=== PATIENT | male | born 1935 | race Caucasian/White ===

== ENCOUNTER 2024-01-06 23:51 | Inpatient (IN) | payer OTHER, SELFPAY ==
[2024-01-06 21:18] VITALS: BP 141/68
[2024-01-06 21:19] VITALS: BP 141/68
[2024-01-06 21:24] VITALS: BMI 29.2
--- NOTE | 2024-01-06 21:55 | ED.GENMED ---
History of Present Illness
General
Chief Complaint: Weakness
Time Seen by Provider: 01/06/24 21:39
History of Present Illness
History of Present Illness:
88-year-old male presents the emergency department for evaluation of generalized weakness, fevers, chills, and mild cough. Symptoms began yesterday and worsened today. He had a positive COVID-19 test at home today. Denies chest pain or dyspnea at
this time. No leg swelling or calf cramping
Past History
Past History
ED Past Medical History: CAD, HTN, Hypercholesterolemia and Other (AAA)
ED Past Surgical History: Cardiac, Orthopedic and Other (AAA repair)
Social History
Tobacco: Non-smoker
Alcohol: None
Drug: None
Personal:
Living: with family
Employment: Retired
Review of Systems
Review of Systems
Allergies reviewed?: Yes
All Other Systems: ROS reviewed and negative except as documented in HPI and ROS
Phy Exam
Physical Exam
Physical Exam:
GEN: Ill-appearing, no immediate distress
HEENT: Oral mucosa moist, no scleral icterus
Cardiac: Regular rate and rhythm, no murmurs
Lung: No respiratory distress, no tachypnea, lungs clear to auscultation bilaterally
MSK: No gross deformity or injuries
Skin: Good color, no pallor or jaundice, no rashes
Neuro: AO x3, moves all extremities freely
Psych: Calm, cooperative
Course
Orders/Labs/Results
Orders:
Orders
01/06/24 21:45
Complete Blood Count/With Diff Urgent
Comprehensive Metabolic Panel Urgent
01/06/24 21:47
ECG [Electrocardiogram (*1)] Urgent
Reason for Study: Shortness of Breath
Cardiology Consult: Unknown
01/06/24 21:48
EKG- Treatment ONCE
01/06/24 21:49
COVID-19 Antigen Urgent
Source: Nasal Swab
Comment: .
01/06/24 22:15
CR Chest - 2 Views Urgent
Comment:
Reason For Exam: weakness/COVID
01/06/24 22:56
Acetaminophen [Tylenol] 1,000 mg PO NOW STA
Dexamethasone Sod Phosphate [Decadron] 6 mg IV NOW STA
Ondansetron Injectable [Zofran] 4 mg IV NOW STA
01/06/24 23:04
Ondansetron Injectable [Zofran] 4 mg IV NOW STA
01/06/24 23:10
Dexamethasone Sod Phosphate [Decadron] 4 mg .ROUTE .STK-MED ONE
Abnormal Lab Results
01/06/24 01/06/24
21:45 21:49
WBC 12.1 H 10^3/uL
(4.8-10.8)
RBC 4.20 L 10^6/uL
(4.70-6.10)
Hgb 12.1 L g/dL
(13.0-18.0)
Hct 35.6 L %
(39.0-52.0)
RDW 16.4 H %
(11.5-14.5)
MPV 11.1 H fL
(7.4-10.4)
Abs Immat Gran (auto) 0.1 H 10^3/uL
(0-0.05)
Absolute Neuts (auto) 10.7 H 10^3/uL
(1.4-6.5)
Absolute Lymphs (auto) 0.4 L 10^3/uL
(1.2-3.4)
Absolute Monos (auto) 0.8 H 10^3/uL
(0.1-0.6)
Immature Gran % 1.0 H %
(0-0.5)
Neutrophils % 88.1 H %
(42.2-75.2)
Lymphocytes % 3.0 L %
(20.5-51.1)
BUN 29 H mg/dl
(9-20)
Glucose 160 H mg/dl
(70-99)
SARS-CoV-2 Antigen Positive A
(Negative)
01/06/24 21:45
01/06/24 21:45
Vital Signs
Initial and Last Documented VS:
Initial Vital Signs
Temp Pulse Resp BP Pulse Ox
102.7 F H 90 20 141/68 93
01/06/24 21:18 01/06/24 21:18 01/06/24 21:18 01/06/24 21:18 01/06/24 21:18
Last Documented Vital Signs
Temp Pulse Resp BP Pulse Ox
99.1 F 86 22 138/65 94
01/07/24 01:37 01/07/24 01:37 01/07/24 01:37 01/07/24 01:37 01/07/24 01:49
MDM/Problems Addressed
MDM/Problems Addressed:
Due to the patient's hypoxia we will admit for treatment of COVID-pneumonia, IV Decadron given in the emergency department
Comment
Comment:
EKG independently interpreted by me shows a normal sinus rhythm at a rate of [address] changes concerning for ischemia, QTc of 430
*Critical Care Note
Total Time (30-74mins, 75-104mins- exclusive of procedures): Not Applicable
ED Attending Note
-
Portions of this chart may have been created with voice recognition software.� Occasional wrong word or��sound alike� substitutions may have occurred due to the inherent limitations of voice recognition software.
Discharge Plan
Departure
Patient Disposition: Admit
Date of Disposition: 01/06/24
Time of Disposition: 23:04
Admit to: Med/Surg
Presentation/result/management discussed w/ accepting MD/DO: Hospitalist
Discharge Problem:
COVID-19, Acute hypoxic respiratory failure
Interventions
Interventions:
*Risk Screen - Suicide Last Done: 01/07/24 01:36
*General Assessment Last Done: 01/06/24 21:25
*Neglect/Abuse Screening Last Done: 01/06/24 21:25
ED- Fall Risk Assessment Last Done: 01/06/24 21:25
*ED COVID-19 Vaccine History Last Done: 01/07/24 01:36
*Nursing Disposition Last Done: 01/07/24 01:49
ED- Cardiac Assessment Last Done: 01/06/24 21:25
ED- Neurological Assessment Last Done: 01/06/24 21:25
ED- Pulmonary Assessment Last Done: 01/06/24 21:25
ED-Skin Assessment Last Done: 01/06/24 21:25
Discharge Date and Time
Discharge Date/Time: 01/07/24 01:49
[2024-01-06 21:57] LABS: % Basophils 0.4 % (0-2); % Eosinophils 0.7 % (0-6); % Monocytes 6.8 % (1.7-9.3); % Neutrophils 88.1 % (42.2-75.2); Absolute Basophils 0.1 10^3/uL (0-0.2); Absolute Eosinophils 0.1 10^3/uL (0-0.7); Absolute Immature Granulocytes 0.1 10^3/uL (0-0.05); Absolute Lymphocytes 0.4 10^3/uL (1.2-3.4); Absolute Monocytes 0.8 10^3/uL (0.1-0.6); Absolute Neutrophils 10.7 10^3/uL (1.4-6.5); Hematocrit 35.6 % (39.0-52.0); Hemoglobin 12.1 g/dL (13.0-18.0); Mean Corpuscular Hgb 28.8 pg (27.0-31.0); Mean Corpuscular Volume 84.8 fL (80.0-94.0); Mean Platelet Volume 11.1 fL (7.4-10.4); Nucleated Red Blood Cells % 0 % (-); Platelet Count 172 10^3/uL (130-400); Red Cell Dist. Width 16.4 % (11.5-14.5); White Blood Cell Count 12.1 10^3/uL (4.8-10.8)
[2024-01-06 22:00] VITALS: BP 150/67
[2024-01-06 22:13] LABS: COVID-19 Antigen Positive (Negative)
[2024-01-06 22:21] LABS: ALT (SGPT) 23 U/L (0-50); AST (SGOT) 27 U/L (17-59); Albumin 4.2 g/dl (3.5-5.0); Alkaline Phosphatase 71 U/L (38-126); Blood Urea Nitrogen 29 mg/dl (9-20); Calcium 9.2 mg/dl (8.4-10.2); Carbon Dioxide 27 mmol/L (22-30); Chloride 101 mmol/L (98-107); Estimated Creatinine Clearance 38 ml/min; Glucose 160 mg/dl (70-99); Potassium 4.4 mmol/L (3.5-5.1); Sodium 140 mmol/L (135-145); Total Bilirubin 1.1 mg/dl (0.2-1.3); Total Protein 6.7 g/dl (6.3-8.2); eGFR 58.17
[2024-01-06 22:57] VITALS: BP 150/67
[2024-01-06] MEDS: ZOFRAN 4 MG IV (23:06)
[2024-01-06] MEDS: TYLENOL 1000 MG PO (23:06)
--- NOTE | 2024-01-06 23:07 | HPS.HSE ---
Family Physician
-
Family Physician: Isaiah Farrell
Chief Complaint
-
Weakness/Cough/Cold x 1 day
History of Present Illness
This is an 88yo M with PMH CAD, HTN/HLD, AAA s/p repair, DM2, SHOAIB, GERD, BPH, PMR on Prednisone who presents to ER for Gen weakness/Cough/Cold x 1 day. Pt had a sneezing fit last night. This morning he was noted to have increased coughing with
congestion. suspected covid and performed home test which was positive. +nausea without emesis today. +fever. notes decreased PO intake today and not being able to take any of his medications. Denies diarrhea/abdominal pain. +Mild
confusion, reporting him to normally be AAOx3 at baseline and ambulate without aids. +Endorses vaccination against covid-19. Denies dizziness/LH, CP, palps, wheezing, abd pain, dysuria, flank pain, calf or leg pain/swelling.
Pt does also note he was seen in Dr. Cowan (rheum) office and diagnosed wtih mild flare of PMR. He was increased from 1mg prednisone daily to 5mg daily which he is still taking.
ER course: Pt presents to ER with Tmax 102.7, HR 90, RR 20, BP 141/68, Sat 89% RA improved on 2LNC. WBC 12.1K, Hgb 12.1 g/dL., 3% lymphocytes, BUN/Cr 29/1.2. COVID (+). CXR with possible LLL infiltrate, mild interstitial changes (official read
pending). S/P Tylenol 1000mg PO, Dexamethasone 6mg IV, Zofran 4mg IV in ER.
Medical History
Past Medical History
Past Medical History: Reports Other (CAD, HTN/HLD, AAA s/p Repair, SHOAIB, DM2, GERD, BPH, PMR)
Past Surgical History: Reports Other (AAA repair, Orthopedic Sx (B/L shoulders))
Social History
Tobacco: Non-smoker
Alcohol: None
Drug: None
Personal:
Living: With Family
Family History
Family History: Not pertinent
Allergies / Home Medications
Allergies reflects when Allergies were last updated in [employer].
Home Medications with original date entered in [employer]
Allergy/Medication List:
Allergies
Allergy/AdvReac Type Severity Reaction Status Date / Time
sulfamethoxazole Allergy Unknown Verified 09/19/22 08:30
[From Bactrim]
trimethoprim [From Bactrim] Allergy Unknown Verified 09/19/22 08:30
Home Medications
amlodipine 10 mg tablet 10 mg PO DAILY Blood pressure 04/26/22
ascorbic acid (vitamin C) 1,000 mg tablet (Vitamin C) 1,000 mg PO DAILY@1200 Supplement 04/26/22
aspirin 81 mg tablet,delayed release 81 mg PO DAILY@1200 Blood clot prevention/tx 04/26/22
atorvastatin 40 mg tablet 40 mg PO DAILY High cholesterol 04/26/22
bisoprolol fumarate 5 mg tablet 5 mg PO DAILY Blood pressure 04/26/22
cholecalciferol (vitamin D3) 25 mcg (1,000 unit) tablet (Vitamin D3) 25 mcg PO MOWEFR Supplement 04/26/22
ferrous sulfate 325 mg (65 mg iron) tablet (FeroSul) 325 mg PO FR Supplement 04/26/22
folic acid 1 mg tablet 1 mg PO DAILY@1200 Supplement 04/26/22
indapamide 2.5 mg tablet 2.5 mg PO DAILY Fluid retention/Swelling 04/26/22
lysine 1,000 mg tablet 1,000 mg PO DAILY@1200 Supplement 04/26/22
magnesium chloride 64 mg (magnesium chloride) tablet,delayed release 64 mg PO BID Supplement 04/26/22
multivitamin 1 tab PO DAILY@1200 Supplement 04/26/22
omeprazole 40 mg capsule,delayed release 40 mg PO DAILY Gastrointestinal issue 04/26/22
prednisone 1 mg tablet 5 mg PO DAILY Autoimmune disorder 04/26/22
ramipril 10 mg capsule 10 mg PO DAILY Blood pressure 12/21/22
tamsulosin 0.4 mg capsule 0.4 mg PO DAILY Urinary issue 04/26/22
ICaps AREDS 2 cap PO DAILY 01/06/24
Jardiance 10 mg PO DAILY 01/06/24
Review of Systems
-
A 12 point ROS was completed and negative except as noted: Yes
Physical Exam
Vital Signs
Vital Signs
Temp Pulse Resp BP Pulse Ox
102.7 F H 83 20 150/67 89
01/06/24 21:18 01/06/24 22:57 01/06/24 22:57 01/06/24 22:57 01/06/24 22:57
Physical Exam
General: Well Developed, Well Nourished and No Apparent Distress
HEENT: NormoCephalic, Moist mucous membranes and Atraumatic
Respiratory: Other (Diminished breath sounds b/l, poor inspiratory effort. )
Cardiac: S1/S2, Regular Rhythm and Murmur (+2/6 CHRIS)
GI: Soft, Non Tender, Non Distended and Normal Bowel Sounds; No Organomegaly
Rectal: Deferred by Provider
Genito-urinary: No costovertebral tender; No Choudhary
Musculoskeletal: No Clubbing, No Cyanosis and No Edema
Skin: No Rash
Neuro: Awake, Alert, Nonfocal/grossly intact, Cranial Nerves Intact, No Sensory Deficits and Other (AAOx2 (knows name, , 'andrea ramírez' when asked president, does not recall year); gen weakness 4/5 MSK throughout. ); No Slurred Speech
Psych: Calm
Laboratory Results
-
01/06/24 21:45
01/06/24 21:45
Laboratory Results
Total Bilirubin 1.1 mg/dl (0.2-1.3) 01/06/24 21:45
AST 27 U/L (17-59) 01/06/24 21:45
ALT 23 U/L (0-50) 01/06/24 21:45
Alkaline Phosphatase 71 U/L (38-126) 01/06/24 21:45
Data Reviewed
-
Diagnostic Radiology: Image Personally Visualized and interpreted
Medical Tests (Nuc Med, Echo, EKG etc): Image Personally Visualized and interpreted (EKG: NSR @ 84bpm, Q-waves V1-V2, TWI III-AVF, QTC 430ms. Unchanged from 04/2022. )
Lab Data: Labs Reviewed by me
Old Records: Reviewed
Impression/Plan
-
Acute Hypoxic Respiratory Failure
Sepsis 2/2 COVID-19 Pneumonia
- Sat 89% RA on arrival, improved on 2LNC, no prior home O2 requirements or known MIKAEL diagnoses
- +2/4 SIRS: Tmax 102.7, WBC 12.1K with 3% lymphocytes on admission.
- Obtain Blood Cultures x2, Sputum Culture, Procalcitonin
- Obtain LA stat. Will defer IVF given appears relatively euvolemic and indapamide on hold.
- CXR with possible LLL infiltrate, mild interstitial changes (official read pending)
- COVID(+). Endorses 1 day of symptoms.
- Check procalcitonin, if elevated will consider CAP coverage for superimposed bacterial PNA
- Change home prednisone to Decadron 6mg IV daily, first dose given in ER
- Start Remdesevir
- Pulm toiletting: Albuterol, Mucinex, IS
Acute Encephalopathy
- Mild. AAOx2 on evaluation, ambulatory without walking aids and AAOx3 baseline per
- Non focal in nature. Likely 2/2 hypoxia/infection
- Trend for improvement
Leukocytosis
- WBC 12.1K, recent increase in chronic prednisone
- Possible infiltrate LLL, follow official CXR read
- Obtain procalcitonin and consider antimicrobial coverage if elevated
- Obtain Blood cultures x2, LA, Sputum culture.
- May alternative be elevated in setting of chronic pred use (recently uptitrated)
CAD/HTN/HLD
- Denies stent history.
- TTE 05/2021 with EF 55-60%, Mild A.S (valve area 1.9cm^2), no WMA.�
- Bp stable on admission
- Continue home aspirin/statin, amlodipine, bisoprolol, lisinopril
- Hold indapamide suspecting mild dehydration in setting of high grade fever
DM2 - BG 160 on admission. Check A1C for completeness given steroid initation. Continue jardiance. SSI/accuchecks. DM Diet.
SHOAIB - Hgb 12.1 g/dL. At baseline. Continue home Iron supplementation.
CKD IIIa
- BUN/Cr 04/06.2. At baseline, Follow trends.
- Hold indapamide suspecting mild dehydration in setting of high grade fever
PMR - Recent flare (b/l hip pain) diagnosed with rheum Dr. Cowan 01/02. Home pred increased from 1mg to 5mg with improvement. Now on dexamethasone, wean back to pred accordingly.
GERD - Stable on home PPI
BPH - Continue home flomax
Diet: Cardiac/Diabetic
DVT PPx: Lovenox
Code Status: Full Code, does state he would not want life sustaining measure should he remain on ventilator.
[2024-01-06] MEDS: DECADRON 6 MG IV (23:11)
[2024-01-07 00:52] VITALS: BP 126/67
[2024-01-07 01:17] LABS: Lactic Acid 0.7 mmol/L (0.7-2.0)
[2024-01-07 01:36] VITALS: BMI 28.2
[2024-01-07 01:37] VITALS: BP 138/65
--- NOTE | 2024-01-07 01:50 | PTCARENOTE ---
Received patient from ED. Patient feeling weak and was transferred directly to the bed form the [facility]. Patient assessed, AAOx3, lungs decreased, POX 94% on 2L. Reg heart, trace ankle edema, positive pulses, obese round abdomen, blanchable reddened
bottom. He voided in the urinal. Denies pain at this time. VSS. Patient verbalized an understanding to ring for transfers. Teach back demonstrated with call leonardo. Call leonardo in reach. Bed alarm placed.
[2024-01-07] MEDS: VEKLURY 250 MG IV (02:03)
[2024-01-07] MEDS: NSS 30 IV (02:04)
[2024-01-07 03:04] LABS: Urine Albumin 2+ (Neg - Trace); Urine Bilirubin Negative (Negative); Urine Character Clear (Clear); Urine Color Straw; Urine Glucose Negative (Negative); Urine Ketone Negative (Negative); Urine Leukocyte Negative (Negative); Urine Nitrite Negative (Negative); Urine Occult Blood Trace (Negative); Urine Specific Gravity 1.015 (<1.030); Urine Urobilinogen Negative (Neg - 1+)
[2024-01-07 03:28] LABS: Urine Red Blood Cell None Seen /HPF (0-2); Urine White Cell None Seen /HPF (0-5)
[2024-01-07 03:32] LABS: Procalcitonin 0.11 ng/ml (0.0-0.25)
[2024-01-07 05:48] VITALS: BMI 28.2
[2024-01-07 07:50] VITALS: BP 118/62
[2024-01-07 07:57] LABS: % Basophils 0.2 % (0-2); % Immature Granulocytes 0.8 % (0-0.5); % Monocytes 1.3 % (1.7-9.3); % Neutrophils 94.7 % (42.2-75.2); Absolute Immature Granulocytes 0.1 10^3/uL (0-0.05); Absolute Lymphocytes 0.3 10^3/uL (1.2-3.4); Absolute Monocytes 0.1 10^3/uL (0.1-0.6); Absolute Neutrophils 9.5 10^3/uL (1.4-6.5); Hematocrit 35.5 % (39.0-52.0); Hemoglobin 12.1 g/dL (13.0-18.0); Mean Corp Hgb Conc. 34.1 g/dL (33.0-37.0); Mean Corpuscular Hgb 28.9 pg (27.0-31.0); Mean Corpuscular Volume 84.7 fL (80.0-94.0); Mean Platelet Volume 10.4 fL (7.4-10.4); Nucleated Red Blood Cells % 0 % (-); Platelet Count 153 10^3/uL (130-400); Red Blood Cell Count 4.19 10^6/uL (4.70-6.10); Red Cell Dist. Width 16.3 % (11.5-14.5); White Blood Cell Count 10.1 10^3/uL (4.8-10.8)
[2024-01-07 08:02] LABS: D-Dimer 3.55 ug/mlFEU (0.00-0.50)
[2024-01-07] MEDS: ProAIR HFA INHALER 2 PUFF INH ×3 (08:03→16:04)
[2024-01-07 08:27] LABS: ALT (SGPT) 22 U/L (0-50); AST (SGOT) 27 U/L (17-59); Albumin 3.9 g/dl (3.5-5.0); Alkaline Phosphatase 67 U/L (38-126); Blood Urea Nitrogen 26 mg/dl (9-20); Calcium 9.1 mg/dl (8.4-10.2); Carbon Dioxide 27 mmol/L (22-30); Chloride 101 mmol/L (98-107); Direct Bilirubin 0.1 mg/dl (0.0-0.4); Estimated Creatinine Clearance 42 ml/min; Glucose 167 mg/dl (70-99); Magnesium 1.5 mg/dl (1.6-2.3); Potassium 4.6 mmol/L (3.5-5.1); Sodium 141 mmol/L (135-145); Total Bilirubin 0.8 mg/dl (0.2-1.3); Total Protein 6.4 g/dl (6.3-8.2); eGFR > 60.00
[2024-01-07] MEDS: MUCINEX 600 MG PO (08:41)
[2024-01-07] MEDS: PROTONIX 40 MG PO (08:41)
[2024-01-07] MEDS: LIPITOR 40 MG PO (08:41)
[2024-01-07] MEDS: JARDIANCE 10 MG PO (08:41)
[2024-01-07] MEDS: NORVASC 10 MG PO (08:41)
[2024-01-07] MEDS: OCUVITE SOFTGEL 1 CAP PO (08:41)
[2024-01-07] MEDS: MAG-TAB SR 84 MG PO (08:41)
[2024-01-07] MEDS: FLOMAX 0.4 MG PO (08:41)
[2024-01-07] MEDS: DECADRON 6 MG IV (08:42)
[2024-01-07] MEDS: ZEBETA 5 MG PO (08:42)
[2024-01-07] MEDS: ALTACE 10 MG PO (08:42)
[2024-01-07] MEDS: ASPIR LOW (ENTERIC COATED) 81 MG PO (13:14)
[2024-01-07] MEDS: VITAMIN C 1000 MG PO (13:14)
[2024-01-07] MEDS: THERAGRAN 1 TABLET PO (13:14)
[2024-01-07] MEDS: FOLVITE 1 MG PO (13:14)
--- NOTE | 2024-01-07 13:22 | W.PN.HOSP.TC ---
Today's Communication/Plan
-
Anticipate discharge home if ambulating room without O2 requirement
Assessment / Plan
Assessment / Plan
88yo M with PMH CAD, HTN/HLD, AAA s/p repair, DM2, SHOAIB, GERD, BPH, PMR on Prednisone who presented to ER for Gen weakness/Cough/Cold x 1 day.
Acute Hypoxic Respiratory Failure
Sepsis 2/2 COVID-19 Pneumonia
- Sat 89% RA on arrival, improved on 2LNC, no prior home O2 requirements or known MIKAEL diagnoses
- +2/4 SIRS: Tmax 102.7, WBC 12.1K with 3% lymphocytes on admission.
- COVID positive. Blood cultures x2 and sputum culture pending
- Defer IVF given appears relatively euvolemic and indapamide on hold.
- CXR shows mild amount of interstitial disease bilaterally, likely subsegmental atelectasis and scarring. No consolidations suspicious of pneumonia, no acute cardiopulm findings.
- Lactic acid and procalcitonin wnl. Less concerned for superimposed bacterial pneumonia
- D dimer elevated, consistent with COVID infection
- Continue incentive spirometer, albuterol inhaler, remdesivir while inpatient
- Has been on decadron 6mg IV qd x2 in hospital. Will discharge with dexamethasone PO 6mg qd for 3 additional days (5 days total including inpatient IV). Hold home prednisone 5mg and resume following completion of dexamethasone.
- If able to ambulate in room without significant desat on RA, then stable for discharge home with outpatient follow up prn
Leukocytosis
- WBC 12.1K on admission --> 10.1 today
- May be associated with chronic pred use (recently uptitrated)
- See A/P above
Acute Encephalopathy
- Mild on admission. AAOx2 on evaluation, ambulatory without walking aids and AAOx3 baseline per
- Non focal in nature. Likely 2/2 hypoxia/infection
- Improved today, stable for discharge home
CAD/HTN/HLD
- Denies stent history.
- TTE 05/2021 with EF 55-60%, Mild A.S (valve area 1.9cm^2), no WMA.�
- Bp stable
- Continue home aspirin/statin, amlodipine, bisoprolol, lisinopril
- Indapamide suspecting mild dehydration in setting of high grade fever. Will resume at discharge.
DM2 - BG 160 --> 167. Continue jardiance. SSI/accuchecks. DM Diet. Follow up outpatient.
SHOAIB - Hgb 12.1 g/dL. At baseline. Continue home Iron supplementation.
CKD IIIa
- BUN/Cr 29/1.2 --> 26/1.1. At baseline, Follow trends.
- Hold indapamide suspecting mild dehydration in setting of high grade fever
PMR - Recent flare (b/l hip pain) diagnosed with rheum Dr. Cowan 01/02. Home pred increased from 1mg to 5mg with improvement. Now on dexamethasone, wean back to pred accordingly. See A/P above.
GERD - Stable on home PPI
BPH - Continue home flomax
Diet: Cardiac/Diabetic
DVT PPx: Lovenox
Code Status: DNR (Reviewed with patient today 01/06)
Anticipated Discharge: Today
Subjective/Interval History
-
Date of Service: January 07, 2024
No acute events overnight. Feels better than yesterday, but overall weak. Reports productive cough with clear sputum. He feels less confused. Denies headache, lightheadedness, dizziness, chest pain, shortness of breath, nausea, vomiting. Tolerating
PO diet. Has not been out of bed since last night.
Objective Data
-
Labs:
Laboratory Results
01/07/24
07:15
WBC 10.1
Hgb 12.1 L
Hct 35.5 L
Plt Count 153
Sodium 141
Potassium 4.6
Chloride 101
Carbon Dioxide 27
BUN 26 H
Creatinine 1.1
Glucose 167 H
Calcium 9.1
Total Bilirubin 0.8
AST 27
ALT 22
Alkaline Phosphatase 67
Vital Signs:
Vital Signs
Temp Pulse Resp BP Pulse Ox
98.2 F 71 16 118/62 93
01/07/24 07:50 01/07/24 11:30 01/07/24 11:30 01/07/24 07:50 01/07/24 11:30
I&O
01/06/24 01/07/24 01/08/24
06:59 06:59 06:59
Intake Total 1959 / 1959
Output Total 875 / 875
Balance 1085 / 1085
Review of Systems
-
History Source: Patient
All other systems: Reviewed and negative
Physical Exam
-
General: Well Developed, Well Nourished, No Apparent Distress, Comfortable and Conversant; Negative Pain or Fever
HEENT: Normocephalic and Atraumatic
Cardiac: Regular Rhythm and S1/S2
GI: Soft, Nontender, Nondistended and Normal Bowel Sounds
Musculoskeletal: No Cyanosis and No Edema
Skin: Warm and Dry
Neuro: Awake, Alert and Oriented
Psych: Calm
Data Reviewed
-
Diagnostic Radiology: Image personally visualized and interpreted, Report Reviewed by me and Discussed with Physician
Labs: Labs Reviewed by me and Discussed with Physician
[2024-01-07 13:31] VITALS: BP 119/60; PULSE 70; O2SAT 92
[2024-01-07] MEDS: MAGNESIUM SULFATE 102 GRAMS IV (14:41)
--- NOTE | 2024-01-07 14:51 | CM ---
Reviewed the chart notes and spoke with the patient via telephone due to Covid + status. Patient resides with spouse in a two story home with five steps to enter. The patient reports having some DME in the home from previous spouses. Patient's
[facility]acy is [facility]. The patient is for discharge today. Patient's spouse will provide transportation. CM continues to be available to patient/family and is monitoring medical plan for needs at discharge.
Plan: Discharge to home today. No needs identified at this time.
--- NOTE | 2024-01-07 15:36 | W.DCSUMMARY ---
Discharge Summary
Discharge Data
Date of Admission: 01/06/24
Date of Discharge: 01/08/24
-
Pending Results: Yes
Additional Pending Results:
Blood cultures 01/07/24
Hospital Course
Discharging Physician : Dr. Schuster, Dr. Laguerre
Disposition : Home
Primary care physician : Dr. Farrell
Principal Discharge diagnosis : COVID-19, acute hypoxemic respiratory insufficiency, encephalopathy, leukocytosis
Chronic Discharge diagnosis : CAD, HTN, HLD, AAA s/p repair, T2DM, SHOAIB, PMR
Hospital Course : Presented to ED for weakness and cough, and was found to have acute hypoxemic insufficiency, encephalopathy, and tested positive for COVID. He was treated with IV decadron 6mg IV qD and remdesivir, and rapidly improved. The
following day had no oxygen requirement and was able to ambulate on room air. His leukocytosis and encephalopathy resolved. His other chronic conditions were stable. On day of discharge he was stable. He was discharged home with short course of
decadron 6mg PO and an albuterol inhaler.
Important imaging findings :
Chest xray 01/06/24
IMPRESSION:
1. Mildly decreased bilateral lung volumes with a mild amount of interstitial disease in both lower lungs (probably a combination of subsegmental atelectasis and scarring).
2. Large bilateral pericardial fat pads.
3. Severe calcific atherosclerotic plaque in the thoracic aorta.
4. Abdominal aortobiiliac endograft in place.
5. 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
Procedure findings : N/A
Discharge Plan
-
Patient Disposition: Home (Routine Discharge)
Discharge Diagnosis/Procedures: Acute hypoxic insufficiency, encephalopathy, COVID-positive
Condition: Good
Diet: Diabetic, Carb Controlled
Activity: No restrictions
Driving Restrictions: As prior to admission
Bathing Restrictions: OK to Shower
Instructions: COVID-19 in adults - Discharge instructions, BLOOD PRESSURE
Referrals:
Isaiah Farrell MD [Family Provider] -
Additional Discharge Medication Instructions: New medications:
- Take dexamethasone 6mg once per day from 01/07-01/09. (Do not take your regular prednisone on these days.)
Medication changes:
- Do not take your prednisone on the same days as dexamethasone (01/07-01/09). On 01/10, you can begin taking your regular prednisone 5mg once per day.
- Stop indapamide. Talk to your doctor before you restart it.
Prescriptions:
New
dexamethasone 6 mg tablet
6 mg PO DAILY Qty: 3 0RF
albuterol sulfate 90 mcg/actuation aerosol powdr breath activated
2 inh inhalation Q4H PRN (Reason: wheezing) Qty: 1 0RF
Continued
atorvastatin 40 mg tablet
40 mg PO DAILY
omeprazole 40 mg capsule,delayed release(DR/EC)
40 mg PO DAILY
bisoprolol fumarate 5 mg tablet
5 mg PO DAILY
tamsulosin 0.4 mg capsule
0.4 mg PO DAILY
amlodipine 10 mg tablet
10 mg PO DAILY
ferrous sulfate [FeroSul] 325 mg (65 mg iron) tablet
325 mg PO FR
folic acid 1 mg tablet
1 mg PO DAILY@1200
ramipril 10 mg capsule
10 mg PO DAILY
multivitamin Tablet
1 tab PO DAILY@1200
ascorbic acid (vitamin C) [Vitamin C] 1,000 mg Tablet
1,000 mg PO DAILY@1200
lysine 1,000 mg Tablet
1,000 mg PO DAILY@1200
aspirin 81 mg Tablet,Delayed Release (Dr/Ec)
81 mg PO DAILY@1200
cholecalciferol (vitamin D3) [Vitamin D3] 25 mcg (1,000 unit) Tablet
25 mcg PO MOWEFR
magnesium chloride 64 mg Tablet,Delayed Release (Dr/Ec)
64 mg PO BID
ICaps AREDS
2 cap PO DAILY
Jardiance
10 mg PO DAILY
Held
prednisone 1 mg tablet
5 mg PO DAILY
Hold Instructions: restart after you finish your dexamethasone for COVID
Discontinued
indapamide 2.5 mg tablet
2.5 mg PO DAILY
Discharge Orders:
Discharge Patient (As Directed); Ordered 01/07/24
Ordered By: Nuria Schuster
Discharge Date and Time
Discharge Date/Time: 01/07/24 17:34
Print Language: ALBAN[place]
[2024-01-07 15:50] VITALS: BP 109/56
== END 2024-01-07 17:34 | disposition home or self-care (01) | DRG 871 ==
LOC: 2 NORTH 23:51
PROVIDERS: Student in an Organized Health Care Education/Training Program; ADMITTING PHYSICIAN Internal Medicine; ATTENDING PHYSICIAN Internal Medicine; EMERGENCY PHYSICIAN Emergency Medicine; FAMILY PHYSICIAN Specialist
PROC: XW033E5 Introduction of Remdesivir Anti-infective into Peripheral Vein, Percutaneous Approach, New Technology Group 5 (ICD-10-PCS; 2024-01-07)
DX: A41.89 Other specified sepsis (principal); G93.41 Metabolic encephalopathy; J96.01 Acute respiratory failure with hypoxia; U07.1 COVID-19; J98.11 Atelectasis; Z66 Do not resuscitate; E78.00 Pure hypercholesterolemia, unspecified; I12.9 Hypertensive chronic kidney disease with stage 1 through stage 4 chronic kidney disease, or unspecified chronic kidney disease; I25.10 Atherosclerotic heart disease of native coronary artery without angina pectoris; N18.31 Chronic kidney disease, stage 3a; E11.22 Type 2 diabetes mellitus with diabetic chronic kidney disease; D50.9 Iron deficiency anemia, unspecified; M35.3 Polymyalgia rheumatica; K21.9 Gastro-esophageal reflux disease without esophagitis; N40.0 Benign prostatic hyperplasia without lower urinary tract symptoms; Z79.52 Long term (current) use of systemic steroids; Z79.82 Long term (current) use of aspirin
CPT/HCPCS: 71046; 80053; 81003; 81015; 82248; 82728; 83605; 83735; 84145; 85025; 85379; 86140; 87040; 87811; 93005; 94640; 96374; 96375; 97163; 99285; J0248

== ENCOUNTER → 2024-04-25 18:11 | Outpatient (REF) | payer OTHER, SELFPAY | LOC: PAVMRI 18:11 | PROVIDERS: ATTENDING PHYSICIAN Physician Assistant; FAMILY PHYSICIAN Internal Medicine | DX: M54.16 Radiculopathy, lumbar region (principal) | CPT/HCPCS: 72148 ==